=== PATIENT | male | born 1975 | race Caucasian/White ===

== ENCOUNTER 2020-02-01 00:31 | Emergency (ER) | payer BC ==
[~2020-02-01] VITALS: Ht 175.3 cm; Wt 94.8 kg
[2020-02-01 01:57] LABS: BASOPHIL % 1.3 % (0-2); PLATELET COUNT 202 x10^3mcL (130-400); RED CELL DISTRIBUTION WIDTH 12.7 % (11.5-14.5)
[2020-02-01 02:08] LABS: CALCIUM 9.1 mg/dL (8.5-10.1); CARBON DIOXIDE 27.9 mmol/L (21-32); CHLORIDE SERUM 101 mmol/L (98-107); CREATININE SERUM 0.9 mg/dL (0.7-1.3); GFR1 > 60 mL/min; GLUCOSE SERUM 234 mg/dL (74-106); POTASSIUM SERUM 3.9 mmol/L (3.5-5.1); SODIUM SERUM 136 mmol/L (136-145)
[2020-02-01 02:15] LABS: ALBUMIN 3.6 g/dL (3.4-5.0); ALKALINE PHOSPHATASE 77 U/L (46-116); ALT/SGPT 26 U/L (16-63); AST/SGOT 11 U/L (15-37); BILIRUBIN TOTAL 0.32 mg/dL (0.20-1.00)
[2020-02-01 02:54] LABS: AMPHETAMINE QUAL UR NONE DETECTED (See below)
[2020-02-01 04:15] VITALS: BP 104/69
== END 2020-02-01 04:15 | disposition home or self-care (01) ==
LOC: ED 00:31
PROVIDERS: Emergency Medicine
DX: E11.65 Type 2 diabetes mellitus with hyperglycemia (principal); R07.89 Other chest pain; I10 Essential (primary) hypertension
CPT/HCPCS: 83880; J7030; Q0092

== ENCOUNTER 2020-05-27 19:32 | Emergency (ER) | payer BC ==
[~2020-05-27] VITALS: Ht 172.7 cm; Wt 93.4 kg
[2020-05-27 19:43] VITALS: Ht 172.7 cm; Wt 93.4 kg
[2020-05-27 20:13] LABS: BASOPHIL % 0.4 % (0-2); PLATELET COUNT 183 x10^3mcL (130-400); RED CELL DISTRIBUTION WIDTH 13.3 % (11.5-14.5)
[2020-05-27 20:22] LABS: CARBON DIOXIDE 28.8 mmol/L (21-32); CHLORIDE SERUM 103 mmol/L (98-107); CREATININE SERUM 0.9 mg/dL (0.7-1.3); GFR1 > 60 mL/min; GLUCOSE SERUM 131 mg/dL (74-106); SODIUM SERUM 141 mmol/L (136-145)
[2020-05-27 20:29] LABS: ALBUMIN 3.9 g/dL (3.4-5.0); ALKALINE PHOSPHATASE 71 U/L (46-116); ALT/SGPT 44 U/L (16-63); AST/SGOT 22 U/L (15-37); BILIRUBIN TOTAL 0.4 mg/dL (0.20-1.00); PHOSPHOROUS 3.6 mg/dL (2.5-4.9); TOTAL PROTEIN, SERUM 7.1 g/dL (6.4-8.2); URIC ACID 4.4 mg/dL (3.5-7.2)
[2020-05-27 20:31] LABS: CHOLESTEROL 113 mg/dL (<200); HDL CHOLESTEROL 32 mg/dL (40-60)
[2020-05-27 21:45] VITALS: BP 111/64
== END 2020-05-27 21:45 | disposition home or self-care (01) ==
LOC: ED 19:32
PROVIDERS: Emergency Medicine
DX: R07.89 Other chest pain (principal); M25.512 Pain in left shoulder; M54.2 Cervicalgia; I10 Essential (primary) hypertension; E11.9 Type 2 diabetes mellitus without complications
CPT/HCPCS: J1885; Q0092